=== PATIENT | male | born 1990 | race Caucasian/White ===

== ENCOUNTER → 2019-04-27 | Outpatient (REF) | payer BC ==
[2019-04-27 17:22] LABS: BASO # 0.1 10^3/uL (0.0-0.2); BASO % 1.3 % (0.0-1.0); EOS # 0.2 10^3/uL (0.0-0.50); EOS % 3.4 % (0.0-3.0); HEMATOCRIT 44.3 % (42.0-52.0); HEMOGLOBIN 14.6 g/dl (13.5-17.5); LYMPH # 1.7 10^3/uL (1.5-6.5); LYMPH % 26.4 % (24.0-44.0); MEAN CORPUSCULAR HEMOGLOBIN 29.3 pg (27.0-33.0); MONO # 0.8 10^3/uL (0.0-0.8); MONO % 12.3 % (0.0-5.0); NEUTROPHILS # 3.5 10^3/uL (1.8-7.7); NEUTROPHILS % 56.1 % (36.0-66.0); PLATELET COUNT, AUTOMATED 214 10^3/uL (150-450); RED BLOOD COUNT 4.98 10^6/uL (4.30-6.10); WHITE BLOOD COUNT 6.2 10^3/uL (4.0-10.0)
[2019-04-27 17:34] LABS: ALBUMIN 4.3 GM/DL (3.2-5.2); ALT/SGPT 24 U/L (12-78); BILIRUBIN,TOTAL 0.7 MG/DL (0.2-1.0); BLOOD UREA NITROGEN 14 MG/DL (7-18); CALCIUM LEVEL 9.3 MG/DL (8.5-10.1); CARBON DIOXIDE LEVEL 33 MEQ/L (21-32); CHLORIDE LEVEL 106 MEQ/L (98-107); CREATININE FOR GFR 1.02 MG/DL (0.70-1.30); GLOMERULAR FILTRATION RATE > 60.0 (>60); GLUCOSE, FASTING 75 MG/DL (70-100); POTASSIUM SERUM 4.4 MEQ/L (3.5-5.1); SODIUM LEVEL 144 MEQ/L (136-145); THYROID STIMULATING HORMONE 0.668 uIU/ML (0.358-3.740); TOTAL PROTEIN 7.4 GM/DL (6.4-8.2); VITAMIN B12 LEVEL 483 PG/ML (247-911)
[2019-04-27 18:05] LABS: HEMOGLOBIN A1c 5.2 %
[2019-04-30 00:06] LABS: Lyme Disease IgG/IgM Antibodie <0.91 ISR (0.00-0.90); Lyme Disease IgM Ab Quantitati <0.80 index (0.00-0.79)
== END ==
LOC: M SFHCLERA 10:38
PROVIDERS: ATTEND Family Medicine
DX: R20.0 Anesthesia of skin (principal)

== ENCOUNTER → 2019-05-17 | Outpatient (CLI) | payer BC ==
[~2019-05-17] MED LIST: PROHANCE 279.3MG/ML 15ML VIAL (A9576) As Ordered ONE; PROHANCE 279.3MG/ML 5ML VIAL (A9576) As Ordered ONE
--- NOTE | 2019-05-17 22:05 | REPVR ---
EXAM: MR Head Without and With Contrast EXAM DATE/TIME: 05/17/2019 6:36 PM CLINICAL HISTORY: 29 years old, male; Cerebral degeneration; Cognitive impairment; Patient HX: Numbness in face and arms, memory loss; Additional info: Numbness of face and arm TECHNIQUE: Imaging protocol: MR of the head without and with intravenous contrast. Contrast material: PROHANCE; Contrast volume: 15 ml; Contrast route: 22G ANGIO COMPARISON: No relevant prior studies available. FINDINGS: No abnormal diffusion restriction to indicate acute CVA. Midline structures and cerebellar tonsillar position appear normal. Ventricles, cisterns and sulci are symmetric and normal for age. No intracranial mass, midline shift, or abnormal extra-axial fluid. No acute intracranial hemorrhage. White matter structures demonstrate no abnormal FLAIR or T2 signal. CP angle cisterns show normal CSF signal without effacement or mass. No pituitary enlargement or elevation of the diaphragma sella. No abnormal parenchymal or meningeal enhancement with gadolinium. Vascular flow voids are preserved in vertebro-basilar and carotid vessels. Major dural venous sinuses appear patent. Paranasal sinuses and mastoid air cells are normally aerated. Ocular globes and orbits are unremarkable. No soft tissue abnormality or asymmetry in the posterior nasopharynx. IMPRESSION: Unremarkable pre-and postcontrast enhanced MRI of the brain. Electronically signed by: Chad Fox On 05/17/2019 22:05:04 PM
== END ==
LOC: M RAD 17:09
PROVIDERS: ATTEND Family Medicine
DX: R20.0 Anesthesia of skin (principal)
CPT/HCPCS: 70553; A9576

== ENCOUNTER → 2020-04-03 | Outpatient (REF) | payer BC ==
[2020-04-03 11:51] LABS: BASO # 0.1 10^3/uL (0.0-0.2); BASO % 1.1 % (0.0-1.0); EOS # 0.2 10^3/uL (0.0-0.5); EOS % 3.2 % (0.0-3.0); HEMATOCRIT 48.2 % (42.0-52.0); HEMOGLOBIN 15.5 g/dl (13.5-17.5); LYMPH # 1.7 10^3/uL (1.5-5.0); LYMPH % 30.3 % (24.0-44.0); MEAN CORPUSCULAR HEMOGLOBIN 28.5 pg (27.0-33.0); MEAN CORPUSCULAR HGB CONC 32.2 g/dl (32.0-36.5); MEAN CORPUSCULAR VOLUME 88.8 fl (80.0-96.0); MONO # 0.5 10^3/uL (0.0-0.8); MONO % 9.4 % (0.0-5.0); NEUTROPHILS # 3.1 10^3/uL (1.5-8.5); NEUTROPHILS % 55.8 % (36.0-66.0); PLATELET COUNT, AUTOMATED 275 10^3/uL (150-450); RED BLOOD COUNT 5.43 10^6/uL (4.30-6.10); WHITE BLOOD COUNT 5.6 10^3/uL (4.0-10.0)
[2020-04-03 12:28] LABS: ALT/SGPT 23 U/L (12-78); BILIRUBIN,TOTAL 0.5 MG/DL (0.2-1.0); BLOOD UREA NITROGEN 10 MG/DL (7-18); CARBON DIOXIDE LEVEL 31 MEQ/L (21-32); CHLORIDE LEVEL 107 MEQ/L (98-107); CREATININE FOR GFR 1.05 MG/DL (0.70-1.30); FREE T4 1.18 NG/DL (0.76-1.46); GLOMERULAR FILTRATION RATE > 60.0 (>60); GLUCOSE, FASTING 87 MG/DL (70-100); POTASSIUM SERUM 4.8 MEQ/L (3.5-5.1); SODIUM LEVEL 140 MEQ/L (136-145); TOTAL PROTEIN 7.1 GM/DL (6.4-8.2)
== END ==
LOC: M SFHCLERA 08:24
PROVIDERS: ATTEND Family Medicine
DX: E04.1 Nontoxic single thyroid nodule (principal); F41.9 Anxiety disorder, unspecified

== ENCOUNTER → 2020-04-09 | Outpatient (CLI) | payer BC ==
--- NOTE | 2020-04-10 03:04 | REP ---
REASON: Palpable nodule on the right. PRIORS: None. Right lobe of the thyroid gland measures 5 x 1.8 x 1.6 cm and left 4 x 1.4 x 1.5 cm. The isthmus measures 2 mm. The thyroid parenchymal echo pattern is heterogenous bilaterally. Four subcentimeter sized complex nodules are seen on the right. The largest measures 6 mm. One nearly anechoic structure is seen on the left measuring 4 mm. This is too small for precise ultrasonographic characterization. IMPRESSION: Right-sided complex nodules, as described above. Electronically Signed by Osmani Peters DO 04/10/2020 11:35 A
== END ==
LOC: M LRY 09:52
PROVIDERS: ATTEND Family Medicine
DX: E04.1 Nontoxic single thyroid nodule (principal)

== ENCOUNTER → 2020-04-16 | Outpatient (CLI) | payer BC ==
--- NOTE | 2020-04-16 11:04 | REPPI ---
Clinical: Bilateral lower back pain and right-sided sciatica . Technique: AP, lateral, bilateral oblique, and coned-down views. Findings: Alignment and lordosis is maintained. The vertebral bodies including transverse process and spinous processes are intact and normal. There is no evidence for acute fracture / compression injury or subluxation. No evidence for spondylolysis or spondylolisthesis. No significant degenerative change is noted. Impression: Normal lumbosacral spine radiograph series. Electronically Signed by Jitendra Oreilly MD 04/16/2020 10:57 A
== END ==
LOC: M PLAIMG 09:59
PROVIDERS: ATTEND Family Medicine
DX: M54.41 Lumbago with sciatica, right side (principal)

== ENCOUNTER → 2020-04-16 | Outpatient (REF) | payer BC ==
[2020-04-16 13:09] LABS: BASO # 0.1 10^3/uL (0.0-0.2); EOS # 0.1 10^3/uL (0.0-0.5); EOS % 1.9 % (0.0-3.0); HEMATOCRIT 44.5 % (42.0-52.0); HEMOGLOBIN 14.6 g/dl (13.5-17.5); LYMPH # 1.4 10^3/uL (1.5-5.0); LYMPH % 29.1 % (24.0-44.0); MEAN CORPUSCULAR HEMOGLOBIN 28.8 pg (27.0-33.0); MEAN CORPUSCULAR HGB CONC 32.8 g/dl (32.0-36.5); MEAN CORPUSCULAR VOLUME 87.8 fl (80.0-96.0); MONO # 0.6 10^3/uL (0.0-0.8); MONO % 11.9 % (0.0-5.0); NEUTROPHILS # 2.7 10^3/uL (1.5-8.5); NEUTROPHILS % 55.7 % (36.0-66.0); PLATELET COUNT, AUTOMATED 235 10^3/uL (150-450); RED BLOOD COUNT 5.07 10^6/uL (4.30-6.10); WHITE BLOOD COUNT 4.8 10^3/uL (4.0-10.0)
[2020-04-16 13:14] LABS: BLOOD UREA NITROGEN 11 MG/DL (7-18); C REACTIVE PROTEIN QUANTITATIV < 0.30 MG/DL (0.00-0.30); CALCIUM LEVEL 9.1 MG/DL (8.5-10.1); CARBON DIOXIDE LEVEL 33 MEQ/L (21-32); CHLORIDE LEVEL 106 MEQ/L (98-107); CREATININE FOR GFR 0.95 MG/DL (0.70-1.30); GLOMERULAR FILTRATION RATE > 60.0 (>60); GLUCOSE, FASTING 81 MG/DL (70-100); POTASSIUM SERUM 4.3 MEQ/L (3.5-5.1); SODIUM LEVEL 140 MEQ/L (136-145)
[2020-04-16 13:44] LABS: ERYTHROCYTE SEDIMENTATION RATE 2 mm/hr (0-15)
== END ==
LOC: M SFHCLERA 09:27
PROVIDERS: ATTEND Family Medicine
DX: M54.41 Lumbago with sciatica, right side (principal)

== ENCOUNTER → 2020-06-11 | Outpatient (CLI) | payer BC ==
[~2020-06-11] MED LIST changes: +E-Z-GAS II EFFERVESCENT PACKET (SODIUM BICARB./CITRIC ACID/SIMETHICONE) As Ordered ONE; +E-Z-HD 98% w/w 340GM SUSP BTL As Ordered ONE; +E-Z-PAQUE 96% w/w SUSP 176GM BTL As Ordered ONE; +ISOVUE-370 76% 100ML VIAL As Ordered ONE; -PROHANCE 279.3MG/ML 15ML VIAL (A9576) As Ordered ONE; -PROHANCE 279.3MG/ML 5ML VIAL (A9576) As Ordered ONE
--- NOTE | 2020-06-28 09:18 | REP ---
ESOPHAGRAM AIR CONTRAST The procedure was performed under the direct supervision of Dr. Renee. The images were reviewed with Dr. Renee. A single view PA chest x-ray is submitted as a police detective film. The superior mediastinal structures are midline. The heart size is within normal limits. The lungs are clear. Liquid barium and gas-producing granules were given in the erect position, as well as liquid barium in the prone oblique positions in order to perform a double-contrast esophagram examination. The oral and pharyngeal stages of deglutition are unremarkable. Esophageal transport is prompt and efficient, and there is no esophagitis, stricture, mucosal ring, or hiatal hernia. Gastroesophageal reflux is not demonstrated on this examination. IMPRESSION: Essentially unremarkable double-contrast esophagram examination. 0.5 minutes of fluoroscopy time was utilized for this procedure. BETH
== END ==
LOC: M RAD 07:37
PROVIDERS: ATTEND Otolaryngology
DX: R13.10 Dysphagia, unspecified (principal)
CPT/HCPCS: 74220; Q9967

== ENCOUNTER → 2020-06-11 | Outpatient (CLI) | payer BC ==
--- NOTE | 2020-06-11 08:08 | REPVR ---
PROCEDURE INFORMATION: Exam: CT Neck With Contrast Exam date and time: 06/11/2020 7:47 AM Age: 30 years old Clinical indication: Throat pain; Additional info: Throat pain, CT first, x-ray second TECHNIQUE: Imaging protocol: Computed tomography images of the neck with intravenous contrast. Radiation optimization: All CT scans at this facility use at least one of these dose optimization techniques: automated exposure control; mA and/or kV adjustment per patient size (includes targeted exams where dose is matched to clinical indication); or iterative reconstruction. Contrast material: ISOVUE 370; Contrast volume: 75 ml; Contrast route: INTRAVENOUS (IV); COMPARISON: US SOFT TISSUE H/N THYROID 04/09/2020 2:39 PM FINDINGS: Paranasal sinuses: Small retention cysts in the left maxillary sinus and left sphenoid sinus. No fluid levels in the paranasal sinuses. Nasopharynx: Unremarkable. Oropharynx: Unremarkable. No significant tonsillar enlargement. Hypopharynx: Unremarkable. Larynx: Unremarkable. Normal epiglottis. Retropharyngeal space: Unremarkable. Submandibular/Parotid glands: Normal. Glands are normal in size. Thyroid: Normal. No enlarged or calcified nodules. Lymph nodes: Unremarkable. No lymphadenopathy. Trachea: Visualized trachea is unremarkable. Lungs: Unremarkable as visualized. Bones/joints: Unremarkable. No acute fracture. Soft tissues: Unremarkable. No significant soft tissue swelling. IMPRESSION: No acute findings. Electronically signed by: Aleksandra Wu On 06/11/2020 08:07:57 AM
== END ==
LOC: M RAD 07:32
PROVIDERS: ATTEND Family Medicine
DX: R07.0 Pain in throat (principal)

== ENCOUNTER → 2020-12-11 | Outpatient (REF) | payer BC | LOC: M SFHCLERA 16:14 | PROVIDERS: ATTEND Family Medicine | DX: N50.811 Right testicular pain (principal) ==

== ENCOUNTER → 2021-04-11 | Outpatient (CLI) | payer BC ==
[2021-04-11 16:56] LABS: BASO # 0.1 10^3/uL (0.0-0.2); BASO % 0.8 % (0.0-1.0); EOS # 0.1 10^3/uL (0.0-0.5); EOS % 1.1 % (0.0-3.0); HEMATOCRIT 44.6 % (42.0-52.0); HEMOGLOBIN 14.5 g/dl (13.5-17.5); LYMPH # 1.6 10^3/uL (1.5-5.0); LYMPH % 26.9 % (24.0-44.0); MEAN CORPUSCULAR HEMOGLOBIN 28.3 pg (27.0-33.0); MEAN CORPUSCULAR HGB CONC 32.5 g/dl (32.0-36.5); MEAN CORPUSCULAR VOLUME 87.1 fl (80.0-96.0); MONO # 0.4 10^3/uL (0.0-0.8); MONO % 7.2 % (2.0-8.0); NEUTROPHILS # 3.9 10^3/uL (1.5-8.5); NEUTROPHILS % 63.7 % (36.0-66.0); PLATELET COUNT, AUTOMATED 273 10^3/uL (150-450); RED BLOOD COUNT 5.12 10^6/uL (4.30-6.10); WHITE BLOOD COUNT 6.1 10^3/uL (4.0-10.0)
[2021-04-11 17:25] LABS: ERYTHROCYTE SEDIMENTATION RATE 1 mm/hr (0-15)
[2021-04-11 17:28] LABS: ALBUMIN 4.4 GM/DL (3.2-5.2); ALT/SGPT 45 U/L (12-78); BILIRUBIN,TOTAL 0.9 MG/DL (0.2-1.0); BLOOD UREA NITROGEN 10 MG/DL (7-18); CARBON DIOXIDE LEVEL 30 MEQ/L (21-32); CHLORIDE LEVEL 107 MEQ/L (98-107); CHOLESTEROL LEVEL 129 MG/DL (<200); CHOLESTEROL RISK RATIO 2.433 (<5); CREATININE FOR GFR 0.94 MG/DL (0.70-1.30); GLOMERULAR FILTRATION RATE > 60.0 (>60); GLUCOSE, FASTING 93 MG/DL (70-100); HDL CHOLESTEROL 53 MG/DL (>40); LDL CHOLESTEROL 67 MG/DL (<100); NON-HDL-C 76 MG/DL; POTASSIUM SERUM 4.2 MEQ/L (3.5-5.1); SODIUM LEVEL 140 MEQ/L (136-145); TOTAL PROTEIN 7.3 GM/DL (6.4-8.2); TRIGLYCERIDES LEVEL 45 MG/DL (<150)
--- NOTE | 2021-04-12 01:12 | REP ---
INDICATION: ABNORMAL WEIGHT LOSS COMPARISON: None. TECHNIQUE: PA and lateral. FINDINGS: The mediastinum and cardiac silhouette are normal. The lung bess are clear and without acute consolidation, effusion, or pneumothorax. The skeletal structures are intact and normal. IMPRESSION: No acute cardiopulmonary process. <Electronically signed by Jitendra Oreilly > 04/12/21 [id number]
== END ==
LOC: M PLAIMG 15:13
PROVIDERS: ATTEND Family Medicine
DX: R63.4 Abnormal weight loss (principal)

== ENCOUNTER → 2021-04-15 | Outpatient (CLI) | payer BC ==
--- NOTE | 2021-04-15 16:47 | REP ---
INDICATION: RT TESTIS PAIN. COMPARISON: None. TECHNIQUE: Real-time sonographic evaluation of scrotum and contents performed. FINDINGS: The testicles are normal in size and echotexture, right testicle measuring 5.2 x 2.6 x 4.1 cm and left testicle 5.2 x 2.5 x 3.1 cm. There is no testicular mass or torsion, blood flow is seen in each testicle with duplex Doppler evaluation. At the site of the left sided palpable lump there is a solid nodule in the head of the left epididymis. This measures approximately 1 cm in diameter. It is somewhat hyperemic with Doppler evaluation. The right epididymis is unremarkable. No hydrocele is seen. IMPRESSION: Solid nodule in the head of the left epididymis measures 1 cm in diameter and may represent an adenomatoid tumor. No testicular mass. <Electronically signed by Omar Benitez > 04/15/21 [id number]
== END ==
LOC: M RAD 15:15
PROVIDERS: ATTEND Family Medicine
DX: N50.811 Right testicular pain (principal)